=== PATIENT | female | born 1990 | race Caucasian/White ===

== ENCOUNTER 2017-02-11 17:13 | Emergency (ER) | payer BC ==
[2017-02-11 17:26] VITALS: RESP 16
[2017-02-11] MEDS ORDERED: AMOXICILLIN/CLAVULANATE POT 875/125 MG TAB PO ONE (17:46)
--- NOTE | 2017-02-11 18:01 | EDPHY ---
General Narrative: CHIEF COMPLAINT: Cat bite HISTORY OF PRESENT ILLNESS: Patient complains of cat bite around 4pm today. This was her pet cat. The cat was at the automation controls engineer when it better in the left hand and left forearm. Superficial the forearm. Deeper in the hand, the base of the thumb, ulnar side. Mild bleeding. No numbness or tingling. No weakness. Significant pain with movement of the thumb. No scratches. Moderate pain with movement of the thumb. Minimal at rest. Cat is fully vaccinated. Patient is up-to-date on immunizations. No other associated complaints or modifying factors. REVIEW OF SYSTEMS: Ten systems reviewed and are negative unless otherwise noted in the HPI PCP: None currently. Working on establishing with a new physician SPECIALISTS: None PAST SURGICAL HISTORY: None SOCIAL HISTORY: Nonsmoker. Occasional alcohol. Currently a student and waits tables as well FAMILY HISTORY: Noncontributory EXAMINATION General Appearance: Alert, no distress Head: normocephalic, atraumatic Eyes: Pupils equal and round, no conjunctival pallor or injection Neck: Normal inspection, supple. Midline trachea Respiratory: No retractions or distress Cardiovascular: Regular rate. Radial pulses 2+ symmetrically. Neurological: Senior Integration Architect strength is symmetric. Interossei strength symmetric. Normal sensation in the back of the hand, palm and forearm. No wrist drop. Skin: Warm and dry, no rash. No laceration. There are puncture rm to the left thumb base, ulnar side. There puncture rm on the left forearm midshaft , volar. The forearm punctures are very superficial. No active bleeding. No foreign body. Extremities: Tenderness over the area puncture. Full range of motion of the left elbow, wrist and hand. There is good abduction, adduction and opposition of the left thumb. Psychiatric: Mood and affect normal DIFFERENTIAL DIAGNOSES: Including but not limited to cat bite, cat scratch, tendon injury, tendinitis, vascular injury MDM: 5:45 p.m. Cat bite to left upper extremity and hand. This is vaccinated CT up-to-date on its immunizations. The patient is up-to-date on tetanus. The thumb punctures are more significant than the forearm. I have anesthetize all areas. Proceed with copious irrigation. Augmentin ordered. This happened today at 4:00 p.m. there is no signs of infection. She is neuro intact. 5:55 p.m. Patient re-evaluated. She complains of feeling somewhat lightheaded. She appears to be having a vagal response to the injection. Informs me this has happened before when she has done the blood. She is awake no acute distress. Placed her in a supine position she is feeling much better. I monitor for 5 minutes and she began to feel much better. She was always awake and alert and conversing appropriately. 6:10 p.m. Patient currently having her wounds irrigated. I do not feel she has any indication for x-ray or further workup studies. I do feel she is stable for discharge home with prophylaxis with Augmentin for 5-7 days. Like her to follow up with her primary care physician, hand surgeon or here should she have any worsening of her symptoms. She is comfortable this plan and discharged in stable condition. - History Smoking Status: Never smoked - Objective Vital Signs: Initial Vital Signs Temperature (C) 98.6 F 02/11/17 17:23 Heart Rate 71 02/11/17 17:23 Respiratory Rate 16 02/11/17 17:23 Blood Pressure 124/78 H 02/11/17 17:23 O2 Sat (%) 96 02/11/17 17:23 O2 Delivery Mode Room Air Allergies/Adverse Reactions: No Known Allergies Allergy (Unverified 02/11/17 17:26) Home Medications: Medication Instructions Recorded Zoloft 100mg (*) 02/11/17 Medications Given: Discontinued Medications Amoxicillin/Clavulanate Potassium (Augmentin 875mg) 875 mg PO EDNOW ONE PRN Reason: Protocol Stop: 02/11/17 17:47 Last Admin: 02/11/17 17:58 Dose: 875 mg Departure - Departure Disposition: Home, Routine, Self-Care Clinical Impression: Cat bite of left hand Qualifiers: Encounter type: initial encounter Qualified Code(s): S61.452A - Open bite of left hand, initial encounter Cat bite of left upper arm Qualifiers: Encounter type: initial encounter Qualified Code(s): S41.152A - Open bite of left upper arm, initial encounter Condition: Good Instructions: Animal Bite (ED) Additional Instructions: 1. Augmentin as prescribed to completion 2. Daily wound care as discussed 3. ED precautions as discussed for worsening pain, redness, difficulty moving the thumb or fingers 4. Qzog-[id number] anti-inflammatories, ibuprofen 600 mg every 8 hours as needed 5. Ice and elevate the extremity today and tomorrow Referrals: WANDA BELLE [Other] - As per Instructions Vira Moran MD [Medical Doctor] - As per Instructions Stand Alone Forms: Work Excuse
[2017-02-11 18:31] VITALS: BP 121/85; PULSE 66; TEMP 98.1; O2SAT 97
== END 2017-02-11 18:31 | disposition home or self-care (01) ==
DX: S51.852A Open bite of left forearm, initial encounter (principal); S61.052A Open bite of left thumb without damage to nail, initial encounter; W55.01XA Bitten by cat, initial encounter

== ENCOUNTER → 2018-08-06 | Outpatient (CLI) | payer MEDICAID | LOC: FCPNEURO 22:50 | PROVIDERS: ATTEND Student in an Organized Health Care Education/Training Program | DX: G47.33 Obstructive sleep apnea (adult) (pediatric) (principal) ==